=== PATIENT | female | born 1960 | race Caucasian/White ===

== ENCOUNTER → 2017-01-13 | Outpatient (CLI) | payer BC ==
[~2017-01-13] MED LIST: CELEBREX50 MG PO
--- NOTE | ~2017-01-13 | MY29 ---
[facility] A Service of [facility] RADIOLOGY TEXT RESULTS PATIENT: SHE WILHELM LOCATION: [facility] : 60 UNIT #: [id number] AGE: [address]: Maria R Meadows MD SEX: F ORDER DR: [id number] [facility] [address] [place], [place] [address] [id number] O MR#: [id number] Acc #: [id number] NAME: SHE WILHELM. : 1960 SEX: F STUDY DATE/TIME: 01/13/2017 10:20 UNIT: [facility] ROOM: STUDY DESCRIPTION: MY MARY JANE SCREENING W/ CAD BILAT Attending Physician: Maria R Meadows M.D. Referring Physician: Maria R Meadows M.D. Ordering Physician: Maria R Meadows M.D. Primary Care Physician: Maria R Meadows M.D. MEDICAL IMAGING REPORT This report is preliminary unless electronic signature is present EXAM Digital screening mammogram 01/13/2017 HISTORY 56-year-old woman positive family history, maternal aunts premenopausal. Known larger left breast. Family history of ovarian cancer. Annual screen. COMPARISON Mammograms 04/02/2009 03/14/2014 10/10/2015 with followup bilateral diagnostic mammogram 10/28/2015. FINDINGS Digital imaging of each breast was completed utilizing screening protocol. Review includes FDA-approved CAD device. Breast parenchyma remains extremely dense in each breast. This reflects both fibroglandular opacities and fibronodularity. Mild parenchymal dominance left breast is stable. I see no suspicious mass characteristics. There are no interval occurring microcalcifications and no focal architectural distortion. IMPRESSION Stable benign mammogram. Annual screening recommended. Patients over the age of 40 are entered into a reminder system with target due date for the next mammogram. A result letter will also be sent to the patient. BIRADS: 2, benign findings Dictated by... Derian Martinez M.D. [facility] A Service of [facility] RADIOLOGY TEXT RESULTS PATIENT: [facility] WILHELM [id number] : 60 UNIT #: [id number] AGE: [address]: Maria R Meadows MD SEX: F ORDER DR: THIS IS AN ELECTRONICALLY VERIFIED REPORT Derian Martinez M.D. at 01/13/2017 3:49 PM LIAT/aleja TD: 01/13/2017 15:22 JOB #: [id number] MEDICAL IMAGING REPORT Page 1 of 1 COPY
== END | disposition home or self-care (01) ==
LOC: CWCC 09:51
DX: Z12.31 Encounter for screening mammogram for malignant neoplasm of breast (principal); Z80.3 Family history of malignant neoplasm of breast; Z80.41 Family history of malignant neoplasm of ovary
CPT/HCPCS: G0202